=== PATIENT | male | born 1965 | race Caucasian/White ===

== ENCOUNTER 2020-02-16 10:46 | Emergency (ER) | payer MEDICARE, SELFPAY ==
[2020-02-16 10:50] VITALS: BP 146/97; PULSE 96; RESP 20; TEMP 36.7; O2SAT 94
--- NOTE | 2020-02-16 11:00 | DI.RAD_ITS ---
EXAM: XR ANKLE LT COMPLETE CLINICAL HISTORY: tender L lateral malleolus; r/o fracture TECHNIQUE: COMPARISON: CR XR FOOT LT COMPLETE from 02/16/2020 FINDINGS: Three views of the ankle and three views of the foot were obtained. The ankle mortise is fairly well maintained. There is a nondisplaced fracture of the distal fibula. Additionally, possible perioste al/cortical disruption of the lateral aspect of the distal tibia may be present adjacent to the tibio fibular joint. No fracture identified on radiographs of the foot. IMPRESSION: Nondisplaced fracture of distal fibula, question associated ligamentous and/or bony injury at the tib ial fibular joint involving the tibial metaphysis.
--- NOTE | 2020-02-16 11:05 | W.ED.GENAD ---
Discharge Plan Disposition Patient Disposition: HOME Condition: Stable Discharge Details Chief Complaint: Orthopedic Clinical Impression: Left ankle sprain Primary Care Provider: None,None ED Provider: Claudia Gonzalez Home Meds and New Rx's Prescriptions: Continued omeprazole 40 mg Capsule,Delayed Release(Dr/Ec) 40 mg PO DAILY RF: 0 citalopram [Celexa] 20 mg Tablet 20 mg PO DAILY RF: 0 diazepam 10 mg Tablet 10 mg PO QID PRN (Reason: Spasms or Anxiety) RF: 0 oxycodone-acetaminophen [Percocet] 7.5-325 mg Tablet 1 tab PO QID PRNRF: 0 losartan-hydrochlorothiazide 100-12.5 mg Tablet 1 tab PO DAILY RF: 0 Discharge Instructions Instructions: Ankle Sprain (ED) Additional Instructions: Rest, ice, and elevate the affected area as much as possible. Alternate tylenol and motrin as needed and directed for pain. Follow-up with your primary care doctor in 1 week as needed and for referral to orthopedics if symptoms do not improve or worsen. Return to the emergency department with any worsening or new concerning symptoms. Referrals: Michael Figueroa MD [ [facility] STAFF PHYSICIAN] - Discharge Data Discharge Physician: Claudia Gonzalez Medical Decision Making 54yo M presents with left foot and ankle pain and swelling after twisting his ankle last night while walking. Mild edema and tenderness palpation of left lateral malleolus and left dorsal lateral foot. No deformity. Neurovascular intact. Referred for x-rays which notes soft tissue swelling but no fracture. Patient placed in ankle stirrup splint and given crutches. Advised on the importance of RICE. Advised to follow up with the primary care doctor for re-evaluation. Usual and customary return precautions given prior to discharge. Medical Records Medical records reviewed: Yes I reviewed the patient's medical records. Imaging Data Radiologic Study: Radiologist's impression: XR Left Foot Complete Exam date and time: 02/16/2020 11:16 AM Age: 54 years old Clinical indication: Pain; Ankle; Left TECHNIQUE: Imaging protocol: XR Left foot. Views: 3 or more views. COMPARISON: No relevant images were readily available for comparison purposes. FINDINGS: Bones/joints: No acute fracture or dislocation. Soft tissues: Moderate swelling about the ankle is redemonstrated. IMPRESSION: Soft tissue swelling about the ankle with no acute fracture or dislocation. XR Left Ankle Exam date and time: 02/16/2020 11:13 AM Age: 54 years old Clinical indication: Injury or trauma; Fall; Initial encounter; Blunt trauma; Left; Injury details: Twisting ankle and fell TECHNIQUE: Imaging protocol: XR Left ankle. Views: 3 or more views. COMPARISON: No relevant images were readily available for comparison purposes. FINDINGS: A least moderate soft tissue swelling about the ankle with no acute fracture or dislocation. Impression: Soft tissue swelling about the ankle with No acute fracture or dislocation. HPI General Mode of arrival: ambulatory. Date/Time Provider Initiated Documentation: 02/16/20 10:50. Limitations to Documentation: no limitations. Information obtained by: patient. HPI Narrative: Patient is a 54-year-old male presents with left foot and ankle pain after twisted his ankle last night. Patient states he was walking in the dark when attempting go swimming and twisted his ankle when stepping off a dock. Related Data Home Medications Medication Instructions Recorded Confirmed citalopram [Celexa] 20 mg PO DAILY 02/16/20 02/16/20 diazepam 10 mg PO QID PRN 02/16/20 02/16/20 losartan-hydrochlorothiazide 1 tab PO DAILY 02/16/20 02/16/20 omeprazole 40 mg PO DAILY 02/16/20 02/16/20 oxycodone-acetaminophen [Percocet] 1 tab PO QID PRN 02/16/20 02/16/20 Allergies Allergy/AdvReac Type Severity Reaction Status Date / Time No Known Allergies Allergy Unverified 02/16/20 10:54 General Stated Complaint: Orthopedic NITIN: 4 Review of Systems All systems reviewed & are unremarkable except as noted in HPI and below Constitutional Constitutional: Reports as per HPI, Denies chills and Denies fever(s) Eyes Eyes: Denies blurry vision ENT Ears, Nose, Mouth, and Throat: Denies dizziness, Denies sore throat and Denies throat swelling Cardiovascular Cardiovascular: Denies chest pain and Denies dyspnea Respiratory Respiratory: Denies cough and Denies dyspnea Gastrointestinal Gastrointestinal: Denies abdominal pain, Denies diarrhea and Denies vomiting Genitourinary Genitourinary: Denies hematuria and Denies dysuria Musculoskeletal Musculoskeletal: Denies back pain and Denies numbness Integumentary/Breasts Skin/Breast: Denies lesions and Denies rash Neurologic Neurologic: Denies dizziness, Denies localized weakness and Denies numbness Allergic/Immunologic Allergic/Immunologic: Denies throat swelling [facility] Medical History (Updated 02/16/20 @ 11:42 by Claudia Gonzalez DO) Depression (Chronic) Hypertension (Chronic) Surgical History (Updated 02/16/20 @ 10:56 by Nay Funez) H/O hernia repair (Chronic) H/O repair of rotator cuff (Acute) History of appendectomy (Chronic) History of surgical removal of ganglion cyst (Acute) Previous back surgery (Acute) Social History Alcohol Intake: never Drug use: Never Substance use type: does not use Do you feel safe at home: Yes Do you feel safe in your relationship?: Yes Exam Const General: cooperative, healthy appearing and no acute distress HENMT Head: normal to inspection Mouth: oral mucosae normal Eyes General: appearance normal, both eyes and all related structures Neck Neck: normal visual inspection Resp Effort & Inspection: normal respiratory effort and able to speak in complete sentences Cardio Rate: regular rate Skin General skin exam: no rashes or lesions noted Neuro General: patient alert, patient awake and patient oriented x3 Motor: muscle tone normal throughout Extrem Left lower extremity: ankle Details: tenderness Location: of the lateral malleolus and abnormal ROM Details: pain with active ROM and pain with passive ROM Psych Appearance: grossly normal Affect: normal affect Course Vital Signs Vital signs: Vital Signs Temperature 98.1 F 02/16/20 10:50 Pulse 96 H 02/16/20 10:50 Respiratory Rate 02/16/20 10:50 Blood Pressure 146/97 H 02/16/20 10:50 Pulse Oximetry 94 L 02/16/20 10:50 Temperature 98.1 F 02/16/20 10:50 Temperature Source Skin 02/16/20 10:50 Pulse 96 H 02/16/20 10:50 Respiratory Rate 02/16/20 10:50 Blood Pressure 146/97 H 02/16/20 10:50 Blood Pressure Position Supine 02/16/20 10:50 Pulse Oximetry 94 L 02/16/20 10:50 Oxygen Delivery Method Room Air 02/16/20 10:50 Oxygen Flow Rate 0 02/16/20 10:50 Pain Level 8 02/16/20 10:50
[2020-02-16] MEDS: Ibuprofen 600 MG TAB PO (11:27)
--- NOTE | 2020-02-16 11:29 | DI.VRAD_ITS ---
PROCEDURE INFORMATION: Exam: XR Left Ankle Exam date and time: 02/16/2020 11:13 AM Age: 54 years old Clinical indication: Injury or trauma; Fall; Initial encounter; Blunt trauma; Left; Injury details: Twisting ankle and fell TECHNIQUE: Imaging protocol: XR Left ankle. Views: 3 or more views. COMPARISON: No relevant images were readily available for comparison purposes. FINDINGS: A least moderate soft tissue swelling about the ankle with no acute fracture or dislocation. Impression: Soft tissue swelling about the ankle with No acute fracture or dislocation. Dictated and Authenticated by: Keenan Fagan MD. Ordering:DEB Taylor MD
--- NOTE | 2020-02-16 11:32 | DI.VRAD_ITS ---
PROCEDURE INFORMATION: Exam: XR Left Foot Complete Exam date and time: 02/16/2020 11:16 AM Age: 54 years old Clinical indication: Pain; Ankle; Left TECHNIQUE: Imaging protocol: XR Left foot. Views: 3 or more views. COMPARISON: No relevant images were readily available for comparison purposes. FINDINGS: Bones/joints: No acute fracture or dislocation. Soft tissues: Moderate swelling about the ankle is redemonstrated. IMPRESSION: Soft tissue swelling about the ankle with no acute fracture or dislocation. Dictated and Authenticated by: Keenan Fagan MD. Ordering:DEB Taylor MD
[2020-02-16 12:30] VITALS: BP 129/96; PULSE 94; RESP 20; TEMP 36.5; O2SAT 95
== END 2020-02-16 12:38 | disposition home or self-care (01) ==
PROVIDERS: Emergency Provider Physician Assistant
DX: S93.492A Sprain of other ligament of left ankle, initial encounter (principal); W16.122A Fall into natural body of water striking bottom causing other injury, initial encounter; I10 Essential (primary) hypertension
CPT/HCPCS: 29515; 99284; 73610; 73630; E0114; L4350

== ENCOUNTER 2020-03-12 02:19 | Outpatient (CLI) | payer MEDICARE, SELFPAY ==
[2020-03-12 09:09] LABS: Hemoglobin A1C 6.4 % (3.8-5.6)
[2020-03-12 10:09] LABS: Calculated LDL 185 mg/dL (<100); Cholesterol 276 mg/dL (<200); Glucose 131 mg/dL (74-106); HDL Cholesterol 67 mg/dL (40-60); Triglyceride 121 mg/dL (<150)
[2020-03-12 10:51] LABS: HCT 52.2 % (40.0-50.0)
[2020-03-13 08:42] LABS: PSA, Screening 1.9 ng/mL (0.0-3.5)
[2020-03-18 00:19] LABS: Testosterone, Total 402 ng/dL (240-950)
== END 2020-03-12 02:39 ==
PROVIDERS: Urology; PCP Family Medicine; Visit Provider Family Medicine
DX: I10 Essential (primary) hypertension (principal); E78.2 Mixed hyperlipidemia; R73.03 Prediabetes; E29.1 Testicular hypofunction; Z12.5 Encounter for screening for malignant neoplasm of prostate
CPT/HCPCS: 36415; 80061; 82947; 84153; 84403; 83036; 85014; 85018